=== PATIENT | female | born 1955 | race Caucasian/White ===

== ENCOUNTER 2017-01-28 10:41 | Observation (INO) | payer BC ==
[~2017-01-28] VITALS: Ht 162.6 cm; Wt 72.4 kg
[~2017-01-28 10:41] MED LIST: ADVIL,NUPRIN,M200 MG PO; CELEXA20 MG PO; CELEXA40 MG PO; FIORICET,ESG1 TABLET PO; LORAZEPAM0.5 MG PO; MAXALT MLT10 MG PO; NEXIUM40 MG PO; NON-ASPIRIN EX500 M2 PO; TENCON 50-3251 EACH PO; TENORMIN50 MG PO; TOPAMAX50 MG PO
[2017-01-28 11:26] LABS: HEMATOCRIT 43.5 % (36.0-46.0); MCH 30.1 PG (29.0-34.0); MCHC 33.1 G/DL (30.0-36.0); PLATELET COUNT 261 K/uL (156-360); RBC DIS.WIDTH-CV 14.4 % (11.8-14.6); RBC DIS.WIDTH-SD 47.7 % (39-53); RED BLOOD COUNT 4.78 M/uL (3.80-5.20); WHITE BLOOD COUNT 7.3 K/uL (4.1-10.2)
[2017-01-28 11:37] LABS: CHLORIDE 111 mEq/L (99-109); POTASSIUM 4.1 mEq/L (3.7-5.4); SODIUM 143 mEq/L (136-147)
[2017-01-28 11:39] LABS: GLUCOSE 104 mg/dL (70-99)
[2017-01-28 11:41] LABS: ANION GAP 12 MEQ/L (2-14)
[2017-01-28 11:43] LABS: GFR ESTIMATE (CALCULATED) > 59 mL/min/
[2017-01-28 11:44] LABS: UREA NITROGEN (BUN) 25 mg/dL (9-23)
[2017-01-28 11:48] LABS: TROP-I INTERPRETATION NEGATIVE; TROPONIN-I < 0.01 ng/mL (0.0-0.30)
[2017-01-28] MEDS ORDERED: ELAVIL10 MG PO (15:36)
[2017-01-28 17:44] VITALS: BP 161/84
[2017-01-28 18:42] LABS: TROP-I INTERPRETATION NEGATIVE; TROPONIN-I < 0.01 ng/mL (0.0-0.30)
[2017-01-28 20:00] VITALS: BP 138/91
[2017-01-28 23:40] VITALS: BP 136/70
[2017-01-29 01:16] LABS: TROP-I INTERPRETATION NEGATIVE; TROPONIN-I < 0.01 ng/mL (0.0-0.30)
[2017-01-29 04:10] VITALS: BP 120/72
[2017-01-29 07:04] VITALS: BP 143/66
[2017-01-29 11:43] VITALS: BP 122/71
== END 2017-01-29 13:23 | disposition home or self-care (01) ==
LOC: EME 10:41 → EDOF 16:09 → 5WEST 16:09
PROVIDERS: Internal Medicine
DX: R00.2 Palpitations (principal); R07.9 Chest pain, unspecified; R94.31 Abnormal electrocardiogram [ECG] [EKG]; F41.9 Anxiety disorder, unspecified; I10 Essential (primary) hypertension; G43.909 Migraine, unspecified, not intractable, without status migrainosus; Z87.891 Personal history of nicotine dependence
CPT/HCPCS: 71020; 80048; 84443; 84484; 85027; 93005; 99281; 99285; G0378

== ENCOUNTER → 2017-04-09 | Outpatient (CLI) | payer BC ==
[~2017-04-09] MED LIST changes: +ELAVIL10 MG PO
[2017-04-09 16:34] LABS: APPEARANCE CLEAR/COLORLESS
[2017-04-09 16:38] LABS: RED CELL DILUTION 1
[2017-04-09 16:39] LABS: RED CELL AREA COUNTED 18; RED CELL COUNT 2 /MM^3 (0-1); WBC AREA COUNTED 18; WBC DILUTION 1; WHITE CELL COUNT 2 /MM^3 (0-5); WHITE CELL RAW COUNT 4
[2017-04-09 17:14] LABS: CSF EOSINOPHILS 0 % (0-25); MONONUCLEAR WBC'S 100 % (50-90); POLYNUCLEAR WBC'S 0 % (0-3)
[2017-04-11 01:00] LABS: Albumin, Serum 4.8 g/dL (3.5-4.9); IgG Index, CSF 0.53 index (<0.66); Synthesis Rate IgG, CSF -0.9 mg/24 h (-9.9-3.3)
== END | disposition home or self-care (01) ==
LOC: RAD 14:40
PROVIDERS: Nurse Practitioner Primary Care
PROC: 009U3ZZ Drainage of Spinal Canal, Percutaneous Approach (ICD-10-PCS; principal; 2017-04-09)
DX: G37.9 Demyelinating disease of central nervous system, unspecified (principal)
CPT/HCPCS: 62270; 77003; 82945; 83873 90; 83916 90; 84157; 87070; 87205; 89051

== ENCOUNTER → 2018-01-30 | Outpatient (CLI) | payer BC | END | disposition home or self-care (01) | LOC: NUC 09:34 | DX: R10.11 Right upper quadrant pain (principal); R10.13 Epigastric pain | CPT/HCPCS: 78227; A9537; J2805 ==